=== PATIENT | female | born 1995 | race Hispanic/Latino ===

== ENCOUNTER 2022-02-22 11:07 | Emergency (ER) | payer OTHER, SELFPAY ==
[2022-02-22 11:09] VITALS: BP 131/82; PULSE 78; RESP 16; TEMP 36.4; O2SAT 99; BMI 23.8
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
[2022-02-22 12:00] VITALS: BP 124/78; PULSE 72; RESP 16; O2SAT 98
[2022-02-22] MEDS: Ondansetron 4 MG/2 ML Vial IV (12:03)
[2022-02-22] MEDS: Morphine 4 MG/ML Syringe IV (12:03)
[2022-02-22 12:20] LABS: Absolute Lymphocyte Count 1.68 X10^3/uL (0.83-4.51); Basophil# 0.02 X10^3/uL; Basophil% 0.2 % (0-1); Eosinophil# 0.06 X10^3/uL; Eosinophils% 0.7 % (0-5); Hematocrit 36.4 % (37-47); Hemoglobin 11.3 g/dL (12.0-15.0); Lymphocyte # 1.68 X10^3/ul (0.83-4.51); Lymphocyte % 20.1 % (19-41); Mean Corpuscular Hgb 21.7 pg (27.0-32.0); Mean Platelet Vol. 11.9 fl (6.2-12.0); Monocyte# 0.61 X10^3/uL; Monocyte% 7.3 % (0-10); NRBC Flagged by Analyzer 0 % (0-5); Neutrophil # 5.95 X10^3/uL (2.7-7.7); Neutrophil % 71.3 % (47-70); Platelet Count 226 K/mm3 (150-450); RBC Distribution Width CV 14.7 % (11.6-14.6); RBC Distribution Width SD 36.7 fl (35.1-43.9); White Blood Count 8.4 K/mm3 (4.4-11.0)
[2022-02-22 12:38] LABS: Alcohol, Blood (Medical)-Serum < 3.0 mg/dL
[2022-02-22 12:39] LABS: Internal QC Validated? YES +Cl - CLEAR BKGD; Pregnancy, Serum, hCG Quali. NEGATIVE Negative
[2022-02-22 12:47] LABS: ALB/GLOB Ratio 1.2 RATIO (0.9-2.4); AST(SGOT) 14 U/L (15-37); Alanine Aminotransfer ALT/SGPT 22 U/L (13-56); Albumin, Serum 4.2 g/dL (3.2-5.0); Alkaline Phosphatase 80 U/L (45-117); Anion Gap 5 (5-15); BUN 10 mg/dL (7-18); BUN/Creat Ratio 19.8 RATIO (10-20); Calcium,Total 9.1 mg/dL (8.5-10.1); Chloride 108 mmol/L (98-107); Creatinine, Serum 0.51 mg/dL (0.55-1.02); EST Glomerular Filtration Rate 159 mL/min (>60); Est Glom Filt Rate - Afr Amer 192 mL/min (>60); Estimated Creatinine Clearance 134.53 ml/min; Globulin 3.6 g/dL (2.2-4.2); Glucose 90 mg/dL (74-106); Potassium 3.2 mmol/L (3.5-5.1); Protein, Total 7.8 g/dL (6.4-8.2); Sodium Level 140 mmol/L (136-145)
--- NOTE | 2022-02-22 12:47 | ED.RN ---
1215 urine obtained per bedpan
[2022-02-22 13:00] VITALS: RESP 16
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
[2022-02-22 13:17] LABS: Amphetamine Urine VISTA NEGATIVE (<1000 ng/mL); Barbiturate Urine VISTA NEGATIVE (< 200 ng/mL); Benzodiazepine Urine VISTA NEGATIVE (< 200 ng/mL); Cocaine Urine VISTA NEGATIVE (< 300 ng/mL); Ecstacy Urine VISTA NEGATIVE (< 500 ng/mL); Methadone Urine VISTA NEGATIVE (< 300 ng/mL); PCP Urine VISTA NEGATIVE (< 25 ng/mL); THC Urine VISTA NEGATIVE (< 50 ng/mL); Vista UDS pH Range 5
[2022-02-22 14:00] VITALS: BP 107/58
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
[2022-02-22] MEDS: Ketorolac 30 MG/ML Syringe IV (14:55)
[2022-02-22] MEDS: Potassium Chloride Oral Tablet 20 MEQ 40 MEQ PO (14:57)
[2022-02-22 15:45] VITALS: RESP 14
== END 2022-02-22 15:46 | disposition home or self-care (01) ==
PROVIDERS: Emergency Provider Emergency Medicine; Visit Provider Emergency Medicine
DX: S87.81XA Crushing injury of right lower leg, initial encounter (principal); V83.7XXA Person on outside of special industrial vehicle injured in nontraffic accident, initial encounter; S87.82XA Crushing injury of left lower leg, initial encounter; M79.605 Pain in left leg; M79.604 Pain in right leg
CPT/HCPCS: 71045; 71260; 72131; 72170; 73552; 74177; 80048; 80053; 80307; 82077; 84703; 85025; 96374; 96375; 99284; Q9967; A4216; J2405